=== PATIENT | female | born 1950 | race American Indian/Alaskan Native ===

== ENCOUNTER 2017-01-22 10:33 | Day surgery (SDC) | payer MEDICARE, BC ==
[2015-12-05 12:58] VITALS: BMI 32.2
[2017-01-22 11:29] LABS: BASO # 0.01 K/mm3 (0.0-2.0); BASO % 0.1 % (0.0-3.0); EOS % 0.3 % (1.5-5.0); GRAN # 4.68 (1.4-6.5); GRAN % 61.3 % (50.0-68.0); HEMOGLOBIN 12.7 gm/dL (12.0-16.0); LYMPH # 2.3 (1.2-3.4); LYMPH % 29.6 % (22.0-35.0); MEAN CELL VOLUME 85.2 fL (80.0-105.0); MEAN CORPUSCULAR HEMOGLOBIN 28.1 pg (25.0-35.0); MEAN PLATELET VOLUME 9.2 fl (7.0-11.0); MONO # 0.7 (0.1-0.6); MONO % 8.7 % (1.0-6.0); PLATELET COUNT 346 10^3/uL (120.0-450.0); RBC 4.52 10^6/uL (3.5-6.1); RED CELL DISTRIBUTION WIDTH 15.1 % (11.5-14.5); WHITE BLOOD COUNT 7.6 10^3/ul (4.5-11.0)
[2017-01-22 11:39] LABS: BLOOD UREA NITROGEN 31 mg/dL (7-21); CALCIUM 10.7 mg/dL (8.4-10.5); GFR AFRICAN-AMERICAN > 60; GFR NON-AFRICAN AMERICAN > 60
[2017-01-22 11:40] LABS: INR 1.01 (0.93-1.08); PARTIAL THROMBOPLASTIN TIME 26.2 Seconds (23.7-30.8); PROTHROMBIN TIME 10.9 Seconds (9.9-11.8)
--- NOTE | 2017-01-22 11:48 | CP.SDSHP ---
Same Day Surgery H & P - History Proposed Procedure: Bx of T9 vertebra. Pre-Op Diagnosis: Lytic lesion of T9 vertebra.hx of left breast cancer. - Previous Medical/Surgical History Cardiac: Hypertension Pulmonary: Smoking Endocrine/Metabolic: Diabetes, Obesity Neuro: Backaches Pain: 2.Mild Pain - Allergies Allergies: Allergies No Known Allergies Allergy (Verified 05/25/13 10:55) - Physical Exam General Appearance: WNL. Vital Signs: Vital Signs 01/22/17 11:19 Temperature 97.8 F Pulse Rate 79 Respiratory 20 Rate Blood Pressure 124/69 O2 Sat by Pulse 98 Oximetry Mental Status: Alert & Oriented x3 Neuro: WNL Heart: WNL Lungs: WNL GI: WNL - {Optional Preform as Required} Breast: WNL Other Pertinent Findings: HX of rheumatoid arthritis. hx of lupus. - Impression Impression: LYTIC LESION T 9 .LEFT BREALCANCER. - Date & Time Date: 01/22/17 Time: 11:47 Short Stay Discharge - Short Stay Discharge Admitting Diagnosis/Reason for Visit: BREAST CA C50.112 C78.51 Disposition: HOME/ ROUTINE Referrals: Farshad Aviles MD [Primary Care Provider] -
[2017-01-22] MEDS ORDERED: Midazolam 2 MG/2 ML VIAL ONE (12:18)
[2017-01-22] MEDS ORDERED: Oxycodone/Acetaminophen 5/325 mg Tab PO PRN (13:27)
[2017-01-22] MEDS ORDERED: Sodium Chloride 0.45% 1,000 ML IV SCH (13:30)
[2017-01-22 14:31] VITALS: RESP 18; TEMP 97.6; O2SAT 98
[2017-01-22 15:00] VITALS: BP 157/63; PULSE 85
--- NOTE | 2017-01-22 19:07 | CT ---
PROCEDURE: CT guided T9 vertebral body biopsy. HISTORY: Breast CA. Lytic 2.5 cm T9 vertebral body mass. Evaluate for metastatic disease PHYSICIAN(S): Matthieu Hernadez MD. TECHNIQUE: The relative risks and indications of the procedure were explained to the patient and consent obtained. The patient was placed prone on the CT scanner and preliminary images through the thoracic spine obtained. Conscious sedation and monitoring were provided throughout the procedure by a nurse. There is a 2.5 cm lytic mass in the left T9 vertebral body contiguous with the epidural sac. A left transpedicular approach was selected and the area prepped and draped in the usual sterile fashion. 1% Xylocaine was used to anesthetize the skin and soft tissues. A on control bone biopsy needle was advanced to left T9 pedicle and its position confirmed with CT. Next a 2.5 cm core was obtained through the lytic lesion with the on control needle. The patient tolerated the procedure well. IMPRESSION: 1. CT-guided T9 vertebral body biopsy as described above.
== END 2017-01-22 18:00 | disposition home or self-care (01) ==
LOC: SDS 10:33
PROVIDERS: ATTEND Radiology Vascular & Interventional Radiology
DX: C79.51 Secondary malignant neoplasm of bone (principal); I10 Essential (primary) hypertension; E11.9 Type 2 diabetes mellitus without complications; E66.9 Obesity, unspecified; M54.9 Dorsalgia, unspecified; Z85.3 Personal history of malignant neoplasm of breast; F17.200 Nicotine dependence, unspecified, uncomplicated; M06.9 Rheumatoid arthritis, unspecified; M32.9 Systemic lupus erythematosus, unspecified; Z68.32 Body mass index [BMI] 32.0-32.9, adult
CPT/HCPCS: 20220; 36415; 77012; 80048; 85025; 85610; 85730; 88305; J2250; J2405; J3010; J7030